=== PATIENT | male | born 2000 | race Caucasian/White ===

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

== ENCOUNTER 2021-03-08 11:03 | Emergency (ER) | payer OTHER ==
[~2021-03-08] VITALS: Ht 177.8 cm; Wt 77.1 kg
== END 2021-03-08 13:45 | disposition home or self-care (01) ==
LOC: EMR PED 11:03
DX: B34.9 Viral infection, unspecified (principal); Z03.818 Encounter for observation for suspected exposure to other biological agents ruled out

== ENCOUNTER 2021-03-12 16:40 | Inpatient (IN) | payer OTHER ==
[~2021-03-12] VITALS: Ht 177.8 cm; Wt 73.6 kg
== END 2021-03-14 12:00 | disposition home or self-care (01) | DRG 866 ==
LOC: EMR PED 16:40 → PED 20:40
PROVIDERS: ADMIT Emergency Medicine; ATTEND Emergency Medicine
DX: A92.8 Other specified mosquito-borne viral fevers (principal); R63.0 Anorexia; Z20.822 Contact with and (suspected) exposure to COVID-19

== ENCOUNTER 2021-08-04 11:06 | Outpatient (CLI) | payer OTHER | END 2021-08-04 11:30 | disposition home or self-care (01) | LOC: ASH CLINIC 11:06 | PROVIDERS: ATTEND Emergency Medicine | DX: U07.1 COVID-19 (principal); Z23 Encounter for immunization ==